=== PATIENT | female | born 1930 | race Caucasian/White ===

== ENCOUNTER 2020-11-10 17:41 | Inpatient (IN) | payer MEDICARE ==
[~2020-11-10] VITALS: Ht 162.6 cm; Wt 65.8 kg
[2020-11-10] MEDS ORDERED: [UNRECOGNIZED DRUG - OTHER] (18:05)
[2020-11-10] MEDS ORDERED: B/P MED (18:05)
[2020-11-10 18:15] LABS: BASOPHIL 0.4 % (0-2); EOSINOPHIL 1.3 % (0-7); HCT 47.3 % (37.0-47.0); HGB 15.4 g/dl (12.5-16.0); LYMPHOCYTE 17.8 % (15-48); MCH 32.4 pg (25.0-31.0); MCHC 32.6 g/dL (32.0-36.0); MCV 99.4 fL (78.0-100.0); NRBC 0; PLT 149 K/uL (150-400); RBC 4.76 M/uL (4.20-5.40); RDW 13.9 % (11.5-14.0); WBC 7.8 K/uL (4.0-10.5)
[2020-11-10 18:27] LABS: ALBUMIN 3.1 g/dL (3.4-5.0); BILIRUBIN - TOTAL 0.5 mg/dL (0.2-1.0); BUN/CREAT RATIO (CALC) 21.8 RATIO; CREATININE 0.87 mg/dL (0.51-0.95); GLOBULIN (CALCULATION) 3.9 g/dL; POTASSIUM 3.3 mmol/L (3.5-5.1)
[2020-11-11 06:13] LABS: ALBUMIN 2.6 g/dL (3.4-5.0); BILIRUBIN - TOTAL 0.8 mg/dL (0.2-1.0); BUN/CREAT RATIO (CALC) 17.9 RATIO; C-REACTIVE PROTEIN 2.6 mg/dL (<=0.90); CREATININE 0.84 mg/dL (0.51-0.95); GLOBULIN (CALCULATION) 2.9 g/dL; POTASSIUM 3.6 mmol/L (3.5-5.1); TOTAL PROTEIN 5.5 g/dL (6.4-8.2)
[2020-11-11 06:56] LABS: BASOPHIL 0.6 % (0-2); EOSINOPHIL 2.4 % (0-7); HCT 43.1 % (37.0-47.0); HGB 13.9 g/dl (12.5-16.0); LYMPHOCYTE 16.5 % (15-48); MCH 32.4 pg (25.0-31.0); MCHC 32.3 g/dL (32.0-36.0); MCV 100.5 fL (78.0-100.0); MONOCYTE 11.6 % (0-12); MPV 13.4 fL (6.0-9.5); NEUTROPHIL 68.4 % (41-80); NRBC 0; RBC 4.29 M/uL (4.20-5.40); RDW 14.1 % (11.5-14.0); WBC 6.3 K/uL (4.0-10.5)
[2020-11-11 07:30] LABS: PLT 149 K/uL (150-400)
[2020-11-11] MEDS ORDERED: ZESTORETIC 20-1 EAC1 PO (09:39)
[2020-11-11] MEDS ORDERED: PRILOSEC20 MG PO (09:40)
[2020-11-12 07:49] LABS: BUN/CREAT RATIO (CALC) 14.6 RATIO; CREATININE 0.82 mg/dL (0.51-0.95); MAGNESIUM 1.9 mg/dL (1.8-2.4); POTASSIUM 3.8 mmol/L (3.5-5.1)
[2020-11-12 07:54] LABS: BASOPHIL 0.5 % (0-2); EOSINOPHIL 3.9 % (0-7); HCT 44.8 % (37.0-47.0); HGB 14.8 g/dl (12.5-16.0); LYMPHOCYTE 17.8 % (15-48); MCH 32.5 pg (25.0-31.0); MCV 98.5 fL (78.0-100.0); NEUTROPHIL 66.5 % (41-80); NRBC 0; RBC 4.55 M/uL (4.20-5.40); WBC 5.9 K/uL (4.0-10.5)
[2020-11-12 08:04] LABS: PLT 137 K/uL (150-400)
--- NOTE | 2020-11-12 11:45 | NUR ---
1125 MIDLINE ORDERED FOR PT FOR IV ANTIBIOTICS.PROCEDURE EXPLAIND TO PT. PT PREPPED AND DRAPED IN STERILE MANNER. THE PT'S LEFT UPPER ARM BASILIC VEIN WAS VISUALIZED USING THE SITE RITE #6 MACHINE. A #21 GAUGE GUIDE NEEDLE WAS USED. GOOD BLOOD RETURN WAS NOTED. THE GUIDE WIRE THREADED EASILY. THE NEEDLE WAS REMOVED AND THE MIDLINE CATHETER WAS PLACED OVER THE WIRE. THE WIRE AND SHEATH WERE REMOVED. GOOD BLOOD RETURN WAS NOTED. A CONNECTOR WAS FLUSHED AND PLACED ON THE CATHETER AND A BIOPATCH WAS PLACED ON TOP OF THE INSERTION SITE. A STERILE TEGADERM WAS PLACED OVER THE MIDLINE CATHETER. PT TOLERATED THE PROCEDURE WELL. PT HAS A #20 GAUGE 10 CM POWERGLIDE MIDLINE CATHETER. GOOD FOR 29 DAYS. THIS IS NOT A CENTRAL LINE. REPORT WAS GIVEN TO KAREN DAHL ON MED/SURG. THE PATIENT WAS ASSISTED BACK TO HER RECLINER WHERE THE SEAT ALARM WAS ACTIVATED, CALL LIGHT WAS WITHIN REACH.
--- NOTE | 2020-11-13 15:24 | NUR ---
11/13/20 A referral was made to [facility] for home delivery of a 3in1 per patient request.
[2020-11-14] MEDS ORDERED: VANCO 1.51.5 GM/500 IV (09:52)
--- NOTE | 2020-11-14 14:46 | NUR ---
11/14/20 [facility] has arranged for home antibiotic infusion per patient choice. Report given to MS KAREN Chau.
== END 2020-11-14 18:00 | disposition home health service (06) | DRG 603 ==
LOC: FER 17:41 → FMS 19:17
PROVIDERS: Emergency Medicine; Nurse Practitioner; ADMIT Internal Medicine
PROC: 05HC33Z Insertion of Infusion Device into Left Basilic Vein, Percutaneous Approach (ICD-10-PCS; principal; 2020-11-12)
DX: L03.115 Cellulitis of right lower limb (principal); Z20.822 Contact with and (suspected) exposure to COVID-19; S91.001A Unspecified open wound, right ankle, initial encounter; I10 Essential (primary) hypertension; E11.9 Type 2 diabetes mellitus without complications; K21.9 Gastro-esophageal reflux disease without esophagitis; D69.6 Thrombocytopenia, unspecified; E55.9 Vitamin D deficiency, unspecified; W22.8XXA Striking against or struck by other objects, initial encounter; Z88.6 Allergy status to analgesic agent; Z88.8 Allergy status to other drugs, medicaments and biological substances; Z83.3 Family history of diabetes mellitus; Z82.3 Family history of stroke
CPT/HCPCS: 36415; 73590; 80048; 80053; 80202; 83605; 83735; 84145; 85025; 86140; 94010; C1751; G0378; J1642; J1650; J2020; J2543; J3370; J7050; U0002

== ENCOUNTER 2021-01-17 14:55 | Inpatient (IN) | payer MEDICARE ==
[~2021-01-17] VITALS: Ht 160 cm; Wt 64.3 kg
[~2021-01-17 14:55] MED LIST: B/P MED; PRILOSEC20 MG PO; VANCO 1.51.5 GM/500 IV; ZESTORETIC 20-1 EAC1 PO; [UNRECOGNIZED DRUG - OTHER]
[2021-01-17 17:01] LABS: BILIRUBIN NEGATIVE (NEGATIVE); BLOOD NEGATIVE Ery/uL (NEGATIVE); CLARITY CLOUDY (CLEAR); COLOR YELLOW (YELLOW); GLUCOSE (U) NORMAL (NORMAL); LEUKOCYTES 3+ Leu/uL (NEGATIVE); NITRITE POSITIVE (NEGATIVE); PROTEIN 2+ mg/dL (NEGATIVE); SPECIFIC GRAVITY <=1.005 (1.001-1.030); UROBILINOGEN 0.2 mg/dL (0.2-1.0); pH >=9.0 (5.0-9.0)
[2021-01-17 17:14] LABS: BACTERIA 4+
[2021-01-17 17:15] LABS: TRIPLE PHOSPHATE CRYSTALS TRACE
[2021-01-17 18:18] LABS: BASOPHIL 0.3 % (0-2); EOSINOPHIL 0.1 % (0-7); HCT 45.6 % (37.0-47.0); HGB 14.9 g/dl (12.5-16.0); LYMPHOCYTE 5.6 % (15-48); MCH 32.6 pg (25.0-31.0); MCHC 32.7 g/dL (32.0-36.0); MCV 99.8 fL (78.0-100.0); MONOCYTE 7.3 % (0-12); MPV 13.2 fL (6.0-9.5); NEUTROPHIL 86.3 % (41-80); NRBC 0; PLT 152 K/uL (150-400); RBC 4.57 M/uL (4.20-5.40); RDW 13.5 % (11.5-14.0); WBC 10.5 K/uL (4.0-10.5)
[2021-01-17 18:41] LABS: BUN/CREAT RATIO (CALC) 30.8 RATIO; CREATININE 0.65 mg/dL (0.51-0.95); POTASSIUM 4.1 mmol/L (3.5-5.1)
[2021-01-17 19:00] LABS: INR 1.19 (0.9-1.2); PROTHROMBIN TIME 14.5 SECONDS (11.8-13.4); PTT 29.8 SECONDS (24.4-34.7)
[2021-01-18 04:04] LABS: BASOPHIL 0.3 % (0-2); EOSINOPHIL 0.4 % (0-7); HCT 46.5 % (37.0-47.0); HGB 14.9 g/dl (12.5-16.0); LYMPHOCYTE 11.3 % (15-48); MCH 32.5 pg (25.0-31.0); MCV 101.5 fL (78.0-100.0); MONOCYTE 9.3 % (0-12); MPV 12.7 fL (6.0-9.5); NEUTROPHIL 78.3 % (41-80); NRBC 0; RBC 4.58 M/uL (4.20-5.40); RDW 13.6 % (11.5-14.0); WBC 7.7 K/uL (4.0-10.5)
[2021-01-18 04:24] LABS: BUN/CREAT RATIO (CALC) 30.5 RATIO; CREATININE 0.59 mg/dL (0.51-0.95); POTASSIUM 4.1 mmol/L (3.5-5.1)
[2021-01-18 04:37] LABS: PLT 190 K/uL (150-400)
--- NOTE | 2021-01-18 09:57 | NUR ---
0709 DR GILES CALLED ABOUT THE INCREASED HEART RATE. NEW ORDERS FOR LOPRESSOR 5MG IV X 1 NOW. 0717 EKG WAS DONE SHOWED SINUS TACK. V/S 161/76, 148, 20, 97.4, 98% 2L NC. 0721 LOPRESSOR 5MG IV WAS GIVEN THE HEART RATE IS [address] ESTES HAS SEEN THE PATIENT AND HAS ORDERED TO TRANSFER TO TCU FOR AN AMINO DRIP.
[2021-01-18 11:30] LABS: FT4 (FREE T4) 0.9 ng/dL (0.76-1.46)
[2021-01-19 04:33] LABS: BASOPHIL 0.3 % (0-2); EOSINOPHIL 1.3 % (0-7); HCT 45.2 % (37.0-47.0); HGB 14.1 g/dl (12.5-16.0); LYMPHOCYTE 9.1 % (15-48); MCH 32.3 pg (25.0-31.0); MCHC 31.2 g/dL (32.0-36.0); MCV 103.7 fL (78.0-100.0); MONOCYTE 11.7 % (0-12); MPV 13.8 fL (6.0-9.5); NEUTROPHIL 77.1 % (41-80); NRBC 0; PLT 154 K/uL (150-400); RBC 4.36 M/uL (4.20-5.40); RDW 13.5 % (11.5-14.0); WBC 7.9 K/uL (4.0-10.5)
[2021-01-19 04:55] LABS: BUN/CREAT RATIO (CALC) 25.8 RATIO; CREATININE 0.66 mg/dL (0.51-0.95); POTASSIUM 4.1 mmol/L (3.5-5.1)
[2021-01-19 05:11] LABS: PRO-BNP 1532 pg/mL (<450)
--- NOTE | 2021-01-20 03:18 | NUR ---
Patient began shift very confused. She was not able to answer orientation questions or state her pain level. Her confusion has improved substantially over the last few hours. She is now able to hold a conversation and state her level of pain.
[2021-01-20 06:26] LABS: BUN/CREAT RATIO (CALC) 22.9 RATIO; CREATININE 0.7 mg/dL (0.51-0.95); POTASSIUM 4.3 mmol/L (3.5-5.1)
[2021-01-20 06:28] LABS: BASOPHIL 0.4 % (0-2); EOSINOPHIL 1.3 % (0-7); HCT 45.5 % (37.0-47.0); HGB 14.2 g/dl (12.5-16.0); MCH 32.4 pg (25.0-31.0); MCHC 31.2 g/dL (32.0-36.0); MCV 103.9 fL (78.0-100.0); NEUTROPHIL 73.8 % (41-80); NRBC 0; PLT 152 K/uL (150-400); RBC 4.38 M/uL (4.20-5.40); RDW 13.4 % (11.5-14.0); WBC 7.9 K/uL (4.0-10.5)
--- NOTE | 2021-01-21 01:00 | NUR ---
Patients EMAR shows that Zinacef was due 01/20/21 at 1500, but never given. Spoke to pharmacist, who instructed to go ahead and administer.
[2021-01-21 04:25] LABS: BASOPHIL 0.1 % (0-2); EOSINOPHIL 0 % (0-7); HCT 47.4 % (37.0-47.0); HGB 14.5 g/dl (12.5-16.0); LYMPHOCYTE 2.5 % (15-48); MCH 32.7 pg (25.0-31.0); MCHC 30.6 g/dL (32.0-36.0); MPV 13.5 fL (6.0-9.5); NEUTROPHIL 93.9 % (41-80); NRBC 0; RBC 4.43 M/uL (4.20-5.40); RDW 13.2 % (11.5-14.0)
[2021-01-21 04:41] LABS: BUN/CREAT RATIO (CALC) 26.6 RATIO; CREATININE 0.64 mg/dL (0.51-0.95); POTASSIUM 4.4 mmol/L (3.5-5.1)
[2021-01-21 04:46] LABS: PLT 173 K/uL (150-400)
--- NOTE | 2021-01-21 16:06 | NUR ---
SPOKE WITH PT AND GRANDSON AND HIS . THEY WOULD LIKE TO GO TO [facility]. IF THEY DO NOT HAVE A BED THEY WILL GO TO [facility] IN [place].
--- NOTE | 2021-01-21 16:12 | NUR ---
TC TO ANILA AT [facility]. ADIVSED HER THAT I HAVE A REFERRAL. SHE STATED THAT AT THIS TIME THEY DO NOT HAVE A BED AT [facility], BUT SINCE PT IS NOT MEDICALLY STABLE, SHE WILL WORK ON REFERRAL IN CASE SOMETHING OPENS UP. I ADVISED THAT [facility] IN [place] IS THE SECOND CHOICE.
[2021-01-22 05:05] LABS: BASOPHIL 0.1 % (0-2); EOSINOPHIL 0.2 % (0-7); HCT 45.1 % (37.0-47.0); HGB 13.7 g/dl (12.5-16.0); LYMPHOCYTE 5.7 % (15-48); MCH 32.3 pg (25.0-31.0); MCHC 30.4 g/dL (32.0-36.0); MCV 106.4 fL (78.0-100.0); MPV 12.6 fL (6.0-9.5); NEUTROPHIL 83.4 % (41-80); NRBC 0; PLT 122 K/uL (150-400); RBC 4.24 M/uL (4.20-5.40); RDW 13.3 % (11.5-14.0); WBC 13.7 K/uL (4.0-10.5)
[2021-01-22 05:06] LABS: ALBUMIN 2.2 g/dL (3.4-5.0); ALKALINE PHOSHATASE 204 U/L (46-116); ALT 18 U/L (14-59); AST 19 U/L (15-37); BILIRUBIN - TOTAL 0.1 mg/dL (0.2-1.0); BUN 35 mg/dL (7-18); BUN/CREAT RATIO (CALC) 33.3 RATIO; CHLORIDE 109 mmol/L (98-107); CO2 (BICARBONATE) 35 mmol/L (21-32); CREATININE 1.05 mg/dL (0.51-0.95); GLOBULIN (CALCULATION) 3.6 g/dL; GLUCOSE 147 mg/dL (74-106); MAGNESIUM 2.1 mg/dL (1.8-2.4); POTASSIUM 4.8 mmol/L (3.5-5.1); TOTAL PROTEIN 5.8 g/dL (6.4-8.2)
--- NOTE | 2021-01-22 10:26 | NUR ---
SPOKE WITH ANILA AT [facility] [phone]. SHE ADVISED THAT SHE HAS RECIEVED FAXED INFORMATION REGARDING PT. I ADVISDED ANILA THAT I WOULD NOT BE HERE ON WEDNESDAY AND TO PLEASE CONTACT [facility] [phone]. ANILA IS AWARE TO CONTACT THE [facility] POA TO SIGN PT PAPERWORK.
--- NOTE | 2021-01-22 14:00 | NUR ---
SPOKE WITH DIL THIS DATE. ADVISED THAT [facility] WILL ACCEPT PT ONCE INSURANCE IS APPROVED. ADVISED THAT THE REP, ANILA FROM [facility] WILL BE CONTACTING HER WHO IS THE POA TO COMPLETE THE PAPERWORK.. ADVISED THAT PT WILL BE MEDICALLY STABLE TO GO WHEN APPROVED.
[2021-01-22 23:07] LABS: BILIRUBIN NEGATIVE (NEGATIVE); BLOOD NEGATIVE Ery/uL (NEGATIVE); CLARITY CLEAR (CLEAR); COLOR YELLOW (YELLOW); GLUCOSE (U) NORMAL (NORMAL); LEUKOCYTES NEGATIVE Leu/uL (NEGATIVE); NITRITE NEGATIVE (NEGATIVE); PROTEIN NEGATIVE (NEGATIVE); SPECIFIC GRAVITY >=1.030 (1.001-1.030); UROBILINOGEN 0.2 mg/dL (0.2-1.0)
[2021-01-23 05:47] LABS: BASOPHIL 0.2 % (0-2); EOSINOPHIL 0.3 % (0-7); HCT 45.1 % (37.0-47.0); HGB 14.2 g/dl (12.5-16.0); LYMPHOCYTE 6.2 % (15-48); MCH 32.6 pg (25.0-31.0); MCHC 31.5 g/dL (32.0-36.0); MCV 103.4 fL (78.0-100.0); MONOCYTE 7.7 % (0-12); MPV 13.8 fL (6.0-9.5); NEUTROPHIL 85.2 % (41-80); NRBC 0; PLT 194 K/uL (150-400); RBC 4.36 M/uL (4.20-5.40); RDW 13.2 % (11.5-14.0); WBC 10.5 K/uL (4.0-10.5)
[2021-01-23 06:07] LABS: BILIRUBIN - TOTAL 0.3 mg/dL (0.2-1.0); BUN/CREAT RATIO (CALC) 46.7 RATIO; CREATININE 0.75 mg/dL (0.51-0.95); MAGNESIUM 2.4 mg/dL (1.8-2.4); POTASSIUM 4.9 mmol/L (3.5-5.1)
[2021-01-24 05:34] LABS: ALBUMIN 2.1 g/dL (3.4-5.0); BILIRUBIN - TOTAL 0.6 mg/dL (0.2-1.0); BUN/CREAT RATIO (CALC) 46.8 RATIO; C-REACTIVE PROTEIN 7.9 mg/dL (<=0.90); CREATININE 0.62 mg/dL (0.51-0.95); GLOBULIN (CALCULATION) 4.1 g/dL; MAGNESIUM 2.1 mg/dL (1.8-2.4); POTASSIUM 4.5 mmol/L (3.5-5.1); TOTAL PROTEIN 6.2 g/dL (6.4-8.2)
[2021-01-24 07:11] LABS: BASOPHIL 0.1 % (0-2); EOSINOPHIL 0.3 % (0-7); HCT 45.7 % (37.0-47.0); HGB 14.8 g/dl (12.5-16.0); LYMPHOCYTE 6.7 % (15-48); MCH 32.9 pg (25.0-31.0); MCHC 32.4 g/dL (32.0-36.0); MCV 101.6 fL (78.0-100.0); MONOCYTE 9.3 % (0-12); MPV 13.5 fL (6.0-9.5); NEUTROPHIL 83.2 % (41-80); NRBC 0; PLT 233 K/uL (150-400); RDW 13.3 % (11.5-14.0); WBC 10.2 K/uL (4.0-10.5)
--- NOTE | 2021-01-24 10:33 | NUR ---
01/24/21 Gaviota with [facility] reports to have received insurance authorization for admission today. However, patient is not ready for discharge. Therefore, [facility] will start a new authorization on 01/27/21.
[2021-01-25 05:43] LABS: BASOPHIL 0.2 % (0-2); EOSINOPHIL 1.5 % (0-7); HCT 44.5 % (37.0-47.0); HGB 14.2 g/dl (12.5-16.0); LYMPHOCYTE 9.9 % (15-48); MCH 32.1 pg (25.0-31.0); MCHC 31.9 g/dL (32.0-36.0); MCV 100.7 fL (78.0-100.0); MPV 13.7 fL (6.0-9.5); NEUTROPHIL 77.6 % (41-80); NRBC 0; RBC 4.42 M/uL (4.20-5.40); RDW 13.4 % (11.5-14.0); WBC 8.5 K/uL (4.0-10.5)
[2021-01-25 06:02] LABS: BILIRUBIN - TOTAL 0.4 mg/dL (0.2-1.0); BUN/CREAT RATIO (CALC) 57.1 RATIO; CREATININE 0.49 mg/dL (0.51-0.95); GLOBULIN (CALCULATION) 3.7 g/dL; MAGNESIUM 2.3 mg/dL (1.8-2.4); POTASSIUM 4.7 mmol/L (3.5-5.1); TOTAL PROTEIN 5.7 g/dL (6.4-8.2)
[2021-01-25 06:05] LABS: PLT 209 K/uL (150-400)
[2021-01-27 09:21] LABS: BASOPHIL 0.5 % (0-2); EOSINOPHIL 1.6 % (0-7); HCT 47.7 % (37.0-47.0); HGB 15.5 g/dl (12.5-16.0); LYMPHOCYTE 11.2 % (15-48); MCH 32.6 pg (25.0-31.0); MCHC 32.5 g/dL (32.0-36.0); MCV 100.2 fL (78.0-100.0); MONOCYTE 8.5 % (0-12); MPV 12.5 fL (6.0-9.5); NRBC 0; PLT 173 K/uL (150-400); RBC 4.76 M/uL (4.20-5.40); RDW 13.2 % (11.5-14.0); WBC 8.7 K/uL (4.0-10.5)
[2021-01-27 09:23] LABS: ALBUMIN 2.2 g/dL (3.4-5.0); BILIRUBIN - TOTAL 0.6 mg/dL (0.2-1.0); BUN/CREAT RATIO (CALC) 33.3 RATIO; CREATININE 0.57 mg/dL (0.51-0.95); POTASSIUM 4.3 mmol/L (3.5-5.1); TOTAL PROTEIN 6.2 g/dL (6.4-8.2)
[2021-01-28 06:33] LABS: BASOPHIL 0.6 % (0-2); EOSINOPHIL 1.4 % (0-7); HCT 49.4 % (37.0-47.0); HGB 15.7 g/dl (12.5-16.0); LYMPHOCYTE 10.6 % (15-48); MCH 32.4 pg (25.0-31.0); MCHC 31.8 g/dL (32.0-36.0); MCV 101.9 fL (78.0-100.0); MONOCYTE 10.5 % (0-12); MPV 12.2 fL (6.0-9.5); NEUTROPHIL 75.2 % (41-80); NRBC 0; PLT 168 K/uL (150-400); RBC 4.85 M/uL (4.20-5.40); RDW 13.3 % (11.5-14.0); WBC 8.4 K/uL (4.0-10.5)
[2021-01-28 06:52] LABS: ALBUMIN 2.2 g/dL (3.4-5.0); BILIRUBIN - TOTAL 0.5 mg/dL (0.2-1.0); BUN/CREAT RATIO (CALC) 27.8 RATIO; CREATININE 0.72 mg/dL (0.51-0.95); GLOBULIN (CALCULATION) 3.7 g/dL; POTASSIUM 4.3 mmol/L (3.5-5.1); TOTAL PROTEIN 5.9 g/dL (6.4-8.2)
--- NOTE | 2021-01-29 15:22 | NUR ---
RECEIVED CALL FROM ANILA AT [facility]. PT. HAS BEEN APPROVED BY HER INSURANCE AND SHE MAY ADMIT TODAY. NO COVID TEST WILL BE REQUIRED. REPORT NUMBER IS [phone] FAX D/C TO [facility] AT [phone].
--- NOTE | 2021-01-29 15:23 | NUR ---
ADVISED CARLOS JONES AND DR. POE OF PT APPROVAL AT [facility] .
[2021-01-29] MEDS ORDERED: PANTOPRAZOLE SO40 MG PO (15:54)
[2021-01-29] MEDS ORDERED: MAG-OXIDE 400M400 MG PO (15:54)
[2021-01-29] MEDS ORDERED: TOPROL XL 50 MG50 MG PO (15:54)
[2021-01-29] MEDS ORDERED: FEOSOL325 MG PO (15:54)
[2021-01-29] MEDS ORDERED: SENOKOT8.6 MG PO (15:54)
[2021-01-29] MEDS ORDERED: HCTZ25 MG PO (15:54)
[2021-01-29] MEDS ORDERED: MIRALAX17 GM PO (15:54)
[2021-01-29] MEDS ORDERED: ELIQUIS5 MG PO (15:54)
[2021-01-29] MEDS ORDERED: AMIODARONE HCL200 MG PO (15:54)
[2021-01-29] MEDS ORDERED: PRINIVIL10 MG PO (15:54)
== END 2021-01-29 18:25 | DRG 956 ==
LOC: FER 14:55 → FTCU 20:49 → FMS 20:49 → FTCU 01-18 09:55 → FMS 01-25 10:17 → FTCU 01-27 07:30
PROVIDERS: Family Medicine; Hospitalist; Internal Medicine Cardiovascular Disease; Nurse Practitioner; Nurse Practitioner Family; Orthopaedic Surgery; ADMIT Internal Medicine
PROC: 0SRS0JA Replacement of Left Hip Joint, Femoral Surface with Synthetic Substitute, Uncemented, Open Approach (ICD-10-PCS; principal; 2021-01-20 16:00)
PROC: 05HY33Z Insertion of Infusion Device into Upper Vein, Percutaneous Approach (ICD-10-PCS; 2021-01-23)
DX: S72.012A Unspecified intracapsular fracture of left femur, initial encounter for closed fracture (principal); S32.512A Fracture of superior rim of left pubis, initial encounter for closed fracture; J96.01 Acute respiratory failure with hypoxia; J96.02 Acute respiratory failure with hypercapnia; G92.8 Other toxic encephalopathy; N30.00 Acute cystitis without hematuria; I48.92 Unspecified atrial flutter; J98.11 Atelectasis; Z20.822 Contact with and (suspected) exposure to COVID-19; I11.9 Hypertensive heart disease without heart failure; I48.0 Paroxysmal atrial fibrillation; K21.9 Gastro-esophageal reflux disease without esophagitis; F41.9 Anxiety disorder, unspecified; I27.20 Pulmonary hypertension, unspecified; E11.65 Type 2 diabetes mellitus with hyperglycemia; E86.9 Volume depletion, unspecified; R33.9 Retention of urine, unspecified; K59.01 Slow transit constipation; T80.89XA Other complications following infusion, transfusion and therapeutic injection, initial encounter; W18.30XA Fall on same level, unspecified, initial encounter; Z88.6 Allergy status to analgesic agent; Y92.009 Unspecified place in unspecified non-institutional (private) residence as the place of occurrence of the external cause
CPT/HCPCS: 36415; 36600; 71045; 71275; 73501; 73502; 76000; 80048; 80053; 81001; 81003; 82803; 83036; 83605; 83735; 83880; 84145; 84439; 84443; 84484; 85025; 85379; 85610; 85730; 86140; 86850; 86900; 86901; 87076; 87088; 87186; 88305; 93005; 94010; 94660; 94667; 94668; 96365; 96375; 97110; 97162; 97166; 97530; 97530-GP; 97535; C1776; J0171; J0282; J0696; J0697; J1100; J1160; J1650; J2270; J2405; J2704; J2795; J3010; J3471; J3475; J7030; J7060; J7120; Q9967; U0002